=== PATIENT | female | born 1945 | race Hispanic/Latino ===

== ENCOUNTER 2017-08-27 19:38 | Emergency (ER) | payer OTHER ==
[2017-08-27] MEDS ORDERED: ONDANSETRON ODT 4 MG TAB ONE (20:26)
[2017-08-27] MEDS ORDERED: ACETAMINOPHEN-CODEINE 300/30MG TAB ONE (20:26)
== END 2017-08-27 20:45 | disposition home or self-care (01) ==
LOC: EDH 19:38
DX: K02.9 Dental caries, unspecified (principal); E11.9 Type 2 diabetes mellitus without complications; E78.5 Hyperlipidemia, unspecified; I10 Essential (primary) hypertension

== ENCOUNTER 2018-07-09 14:18 | Emergency (ER) | payer OTHER ==
[2018-07-09] MEDS ORDERED: TETANUS/DIPHTHERIA TOXOID [ADULT] 0.5 ML VIAL IM ONE (14:58)
== END 2018-07-09 15:11 | disposition home or self-care (01) ==
LOC: EDH 14:18
DX: L03.012 Cellulitis of left finger (principal); E11.9 Type 2 diabetes mellitus without complications; E78.5 Hyperlipidemia, unspecified; I10 Essential (primary) hypertension
CPT/HCPCS: 10060; 90471; 90714